=== PATIENT | female | born 1980 | race Caucasian/White ===

== ENCOUNTER 2018-01-17 11:22 | Emergency (ER) | payer MEDICAID ==
[~2018-01-17] VITALS: Ht 172.7 cm; Wt 78.0 kg
[2018-01-17 11:24] VITALS: Ht 172.7 cm; Wt 78.0 kg
[2018-01-17 12:06] LABS: BASOPHIL % 0.8 % (0-2); RED CELL DISTRIBUTION WIDTH 13.3 % (11.5-14.5)
[2018-01-17 12:30] LABS: UA SPECIFIC GRAVITY 1.025 (1.005-1.035); microscopic required? YES; urine erythrocyte 1+ (NEGATIVE)
[2018-01-17 12:41] LABS: CALCIUM 8.6 mg/dL (8.5-10.1); CHLORIDE SERUM 105 mmol/L (98-107); CREATININE SERUM 0.7 mg/dL (0.6-1.0); GFR1 > 60 mL/min; GLUCOSE SERUM 93 mg/dL (74-106); POTASSIUM SERUM 3.9 mmol/L (3.5-5.1); SODIUM SERUM 136 mmol/L (136-145)
[2018-01-17 12:42] LABS: PLATELET COUNT 223 x10^3mcL (130-400)
[2018-01-17 16:01] VITALS: BP 153/92
== END 2018-01-17 16:01 | disposition home or self-care (01) ==
LOC: ED 11:22
PROVIDERS: Emergency Medicine
DX: I10 Essential (primary) hypertension (principal); Z32.02 Encounter for pregnancy test, result negative; Z71.6 Tobacco abuse counseling
CPT/HCPCS: 99406; J7030